=== PATIENT | female | born 1935 | race African-American/Black ===

== ENCOUNTER 2017-08-12 18:50 | Inpatient (IN) | payer MEDICARE, BC ==
[~2017-08-12] VITALS: Ht 152.4 cm; Wt 74.8 kg
[2017-08-12 19:00] VITALS: BP 120/67
[2017-08-12 20:00] VITALS: BP 120/67
[2017-08-12] MEDS ORDERED: ACETAMINOPHEN 325MG TABLET PO PRN (20:00)
[2017-08-12] MEDS ORDERED: CLONIDINE 0.1MG TABLET PO PRN (20:00)
[2017-08-12] MEDS ORDERED: ONDANSETRON HCL 4MG/2ML VIAL IV PRN (20:00)
[2017-08-12] MEDS ORDERED: HYDROCODONE/ACETAMINOPHEN 5/325MG TABLET PO PRN (20:00)
[2017-08-12] MEDS ORDERED: DEXT 5%/0.45% NACL 1000ML 1,000 ML IV SCH (20:00)
[2017-08-12] MEDS: ATORVASTATIN CALCIUM 20MG TABLET PO SCH (21:00)
[2017-08-13 08:00] VITALS: BP 127/62
[2017-08-13] MEDS: AMLODIPINE 10MG TABLET PO SCH (10:32)
[2017-08-13 20:00] VITALS: BP 101/50
[2017-08-13] MEDS: LACTULOSE 20G/30ML UDC PO PRN (21:15)
[2017-08-13] MEDS: ATORVASTATIN CALCIUM 20MG TABLET PO SCH (21:15)
[2017-08-14 08:00] VITALS: BP 119/51
[2017-08-14] MEDS: AMLODIPINE 10MG TABLET PO SCH (08:51)
[2017-08-14 20:00] VITALS: BP 120/58
[2017-08-14] MEDS: ATORVASTATIN CALCIUM 20MG TABLET PO SCH (21:33)
[2017-08-15 07:28] LABS: BASOPHILS % 0.5 % (0.0-2.0); EOSINOPHILS % 6.7 % (0.0-5.0); HEMATOCRIT. 34.4 % (36.0-48.0); HEMOGLOBIN. 10.9 g/dL (12.0-16.0); LYMPHOCYTES % 18.5 % (20.0-50.0); MEAN CORPUSCULAR HEMOGLOBIN 25.2 pg (28.0-32.0); MEAN CORPUSCULAR VOLUME 79.7 fL (81.0-99.0); MEAN PLATELET VOLUME 8.9 fl (7.4-10.4); MONOCYTES % 10.4 % (2.0-8.0); NEUTROPHILS % 63.9 % (40.0-76.0); PLATELET 201 x1000/uL (130-400); RED BLOOD CELL COUNT 4.31 mill/uL (4.2-5.4); RED CELL DISTRIBUTION WIDTH 14.2 % (11.6-14.6)
[2017-08-15 07:48] LABS: CARBON DIOXIDE 26 mEq/L (21-32); CHLORIDE 107 mEq/L (98-107)
[2017-08-15 08:00] VITALS: BP 114/57
[2017-08-15] MEDS: AMLODIPINE 10MG TABLET PO SCH (09:41)
[2017-08-15] MEDS: DOCUSATE SODIUM 100MG CAPSULE PO PRN (09:42)
[2017-08-15 20:00] VITALS: BP 109/61
[2017-08-15] MEDS: ATORVASTATIN CALCIUM 20MG TABLET PO SCH (21:54)
[2017-08-16 08:00] VITALS: BP 123/59
[2017-08-16] MEDS: AMLODIPINE 10MG TABLET PO SCH (09:17)
[2017-08-16 20:00] VITALS: BP 129/64
[2017-08-16] MEDS: ATORVASTATIN CALCIUM 20MG TABLET PO SCH (21:08)
[2017-08-17 08:00] VITALS: BP 113/61
[2017-08-17] MEDS: AMLODIPINE 10MG TABLET PO SCH (08:23)
[2017-08-17] MEDS: DOCUSATE SODIUM 100MG CAPSULE PO PRN (09:58)
[2017-08-17] MEDS: LACTULOSE 20G/30ML UDC PO PRN (09:58)
[2017-08-17] MEDS: BISACODYL 5MG TABLET PO PRN (17:53)
[2017-08-17 20:00] VITALS: BP 117/67
[2017-08-17] MEDS: ATORVASTATIN CALCIUM 20MG TABLET PO SCH (21:13)
[2017-08-18 08:00] VITALS: BP 123/52
[2017-08-18] MEDS ORDERED: FENTANYL CITRATE/PF 50MCG/ML 2ML VIAL ONE (08:36)
[2017-08-18] MEDS: AMLODIPINE 10MG TABLET PO SCH (09:27)
[2017-08-18 20:00] VITALS: BP 116/61
[2017-08-18] MEDS: ATORVASTATIN CALCIUM 20MG TABLET PO SCH (21:59)
[2017-08-19 08:00] VITALS: BP 115/70
[2017-08-19] MEDS: AMLODIPINE 10MG TABLET PO SCH (09:00)
[2017-08-19 20:00] VITALS: BP 109/53
[2017-08-19] MEDS: ATORVASTATIN CALCIUM 20MG TABLET PO SCH (21:44)
[2017-08-20 08:00] VITALS: BP 121/70
[2017-08-20] MEDS: AMLODIPINE 10MG TABLET PO SCH (09:21)
[2017-08-20 21:00] VITALS: BP 106/51
[2017-08-20] MEDS: ATORVASTATIN CALCIUM 20MG TABLET PO SCH (21:37)
[2017-08-21 07:59] VITALS: BP 129/56
[2017-08-21] MEDS: AMLODIPINE 10MG TABLET PO SCH (09:03)
[2017-08-21 20:00] VITALS: BP 120/53
[2017-08-21] MEDS: ATORVASTATIN CALCIUM 20MG TABLET PO SCH (21:40)
[2017-08-22 08:00] VITALS: BP 103/44
[2017-08-22] MEDS: AMLODIPINE 10MG TABLET PO SCH (08:51)
[2017-08-22 20:00] VITALS: BP 115/63
[2017-08-22] MEDS: ATORVASTATIN CALCIUM 20MG TABLET PO SCH (21:52)
[2017-08-23 08:31] VITALS: BP 166/67
[2017-08-23] MEDS: AMLODIPINE 10MG TABLET PO SCH (09:01)
[2017-08-23 09:05] VITALS: BP 127/58
[2017-08-23] MEDS: LACTULOSE 20G/30ML UDC PO PRN (16:32)
[2017-08-23 20:00] VITALS: BP 135/54
[2017-08-23] MEDS: ATORVASTATIN CALCIUM 20MG TABLET PO SCH (21:47)
[2017-08-24 08:00] VITALS: BP 100/45
[2017-08-24] MEDS: AMLODIPINE 10MG TABLET PO SCH (09:00)
[2017-08-24 20:00] VITALS: BP 119/77
[2017-08-24] MEDS: ATORVASTATIN CALCIUM 20MG TABLET PO SCH (20:44)
[2017-08-25 08:29] VITALS: BP 121/46
[2017-08-25] MEDS: AMLODIPINE 10MG TABLET PO SCH (08:31)
[2017-08-25 20:00] VITALS: BP 107/57
[2017-08-25] MEDS: ATORVASTATIN CALCIUM 20MG TABLET PO SCH (21:00)
[2017-08-26 08:00] VITALS: BP 106/44
[2017-08-26] MEDS: AMLODIPINE 10MG TABLET PO SCH (08:25)
[2017-08-26 20:33] VITALS: BP 109/48
[2017-08-26] MEDS: ATORVASTATIN CALCIUM 20MG TABLET PO SCH (21:15)
[2017-08-27 07:54] LABS: BASOPHILS % 0.9 % (0.0-2.0); EOSINOPHILS % 5.9 % (0.0-5.0); HEMATOCRIT. 35.2 % (36.0-48.0); HEMOGLOBIN. 11.3 g/dL (12.0-16.0); LYMPHOCYTES % 21.2 % (20.0-50.0); MEAN CORPUSCULAR HEMOGLOBIN 25.6 pg (28.0-32.0); MEAN CORPUSCULAR VOLUME 79.9 fL (81.0-99.0); MONOCYTES % 7.4 % (2.0-8.0); NEUTROPHILS % 64.6 % (40.0-76.0); PLATELET 307 x1000/uL (130-400); RED BLOOD CELL COUNT 4.41 mill/uL (4.2-5.4)
[2017-08-27 08:00] VITALS: BP 105/54
[2017-08-27 08:27] LABS: CARBON DIOXIDE 30 mEq/L (21-32); CHLORIDE 104 mEq/L (98-107)
[2017-08-27] MEDS: AMLODIPINE 10MG TABLET PO SCH (08:50)
[2017-08-27 20:00] VITALS: BP 120/66
[2017-08-27] MEDS: ATORVASTATIN CALCIUM 20MG TABLET PO SCH (21:44)
[2017-08-28 08:00] VITALS: BP 106/61
[2017-08-28] MEDS: AMLODIPINE 10MG TABLET PO SCH (09:00)
[2017-08-28 20:00] VITALS: BP 115/51
[2017-08-28] MEDS: ATORVASTATIN CALCIUM 20MG TABLET PO SCH (21:13)
[2017-08-29 08:00] VITALS: BP 124/68
[2017-08-29] MEDS: AMLODIPINE 10MG TABLET PO SCH (09:00)
[2017-08-29 20:00] VITALS: BP 105/51
[2017-08-29] MEDS: ATORVASTATIN CALCIUM 20MG TABLET PO SCH (21:58)
[2017-08-30 08:00] VITALS: BP 110/47
[2017-08-30] MEDS: AMLODIPINE 10MG TABLET PO SCH (08:23)
[2017-08-30 20:00] VITALS: BP 114/59
[2017-08-30] MEDS: ATORVASTATIN CALCIUM 20MG TABLET PO SCH (22:04)
[2017-08-31 08:00] VITALS: BP 107/51
[2017-08-31] MEDS: AMLODIPINE 10MG TABLET PO SCH (08:17)
[2017-08-31 20:00] VITALS: BP 115/62
[2017-08-31] MEDS: ATORVASTATIN CALCIUM 20MG TABLET PO SCH (22:17)
[2017-09-01 08:00] VITALS: BP 115/64
[2017-09-01] MEDS: AMLODIPINE 10MG TABLET PO SCH (08:14)
[2017-09-01 20:00] VITALS: BP 106/59
[2017-09-01] MEDS: ATORVASTATIN CALCIUM 20MG TABLET PO SCH (22:32)
[2017-09-02 08:00] VITALS: BP 100/44
[2017-09-02] MEDS: AMLODIPINE 10MG TABLET PO SCH (08:15)
[2017-09-02 20:00] VITALS: BP 100/49
[2017-09-02] MEDS: ATORVASTATIN CALCIUM 20MG TABLET PO SCH (20:34)
[2017-09-03 08:05] VITALS: BP 141/54
[2017-09-03] MEDS: AMLODIPINE 10MG TABLET PO SCH (09:50)
[2017-09-03] MEDS: BISACODYL 5MG TABLET PO PRN (09:50)
[2017-09-03] MEDS: ASPIRIN 81MG EC TABLET PO SCH (18:30)
[2017-09-03 20:08] VITALS: BP 98/53
[2017-09-03] MEDS: ATORVASTATIN CALCIUM 20MG TABLET PO SCH (21:00)
[2017-09-04 08:00] VITALS: BP 106/49
[2017-09-04] MEDS: AMLODIPINE 10MG TABLET PO SCH (09:00)
[2017-09-04] MEDS: ASPIRIN 81MG EC TABLET PO SCH (09:06)
[2017-09-04] MEDS: LACTULOSE 20G/30ML UDC PO PRN (09:06)
[2017-09-04] MEDS ORDERED: BISACODYL 10MG SUPP PR PRN (13:30)
[2017-09-04] MEDS ORDERED: NA PHOS,M-B/NA PHOS,DI-BA ENEMA 118ML PR PRN (13:30)
[2017-09-04 20:10] VITALS: BP 113/50
[2017-09-04] MEDS: ATORVASTATIN CALCIUM 20MG TABLET PO SCH (21:21)
[2017-09-05 08:00] VITALS: BP 110/50
[2017-09-05] MEDS: AMLODIPINE 10MG TABLET PO SCH (08:35)
[2017-09-05] MEDS: ASPIRIN 81MG EC TABLET PO SCH (08:36)
[2017-09-05 20:00] VITALS: BP 101/49
[2017-09-05] MEDS: ATORVASTATIN CALCIUM 20MG TABLET PO SCH (21:05)
[2017-09-06 07:14] LABS: BASOPHILS % 0.4 % (0.0-2.0); EOSINOPHILS % 6.4 % (0.0-5.0); HEMOGLOBIN. 10.8 g/dL (12.0-16.0); LYMPHOCYTES % 21.7 % (20.0-50.0); MEAN CORPUSCULAR HEMOGLOBIN 25.1 pg (28.0-32.0); MEAN CORPUSCULAR VOLUME 79.3 fL (81.0-99.0); MEAN PLATELET VOLUME 8.5 fl (7.4-10.4); MONOCYTES % 8.1 % (2.0-8.0); NEUTROPHILS % 63.4 % (40.0-76.0); PLATELET 282 x1000/uL (130-400); RED BLOOD CELL COUNT 4.29 mill/uL (4.2-5.4)
[2017-09-06 07:53] LABS: CARBON DIOXIDE 27 mEq/L (21-32); CHLORIDE 105 mEq/L (98-107)
[2017-09-06 08:00] VITALS: BP 105/42
[2017-09-06] MEDS: AMLODIPINE 10MG TABLET PO SCH (08:23)
[2017-09-06] MEDS: ASPIRIN 81MG EC TABLET PO SCH (08:26)
[2017-09-06 20:00] VITALS: BP 107/55
[2017-09-06] MEDS: ATORVASTATIN CALCIUM 20MG TABLET PO SCH (21:08)
[2017-09-07 08:00] VITALS: BP 112/57
[2017-09-07] MEDS: ASPIRIN 81MG EC TABLET PO SCH (08:48)
[2017-09-07] MEDS: AMLODIPINE 10MG TABLET PO SCH (09:00)
[2017-09-07 20:00] VITALS: BP 114/52
[2017-09-07] MEDS: ATORVASTATIN CALCIUM 20MG TABLET PO SCH (21:22)
[2017-09-08 08:00] VITALS: BP 123/49
[2017-09-08] MEDS: AMLODIPINE 10MG TABLET PO SCH (08:51)
[2017-09-08] MEDS: ASPIRIN 81MG EC TABLET PO SCH (08:51)
[2017-09-08 20:00] VITALS: BP 104/55
[2017-09-08] MEDS: ATORVASTATIN CALCIUM 20MG TABLET PO SCH (21:39)
[2017-09-08] MEDS: LACTULOSE 20G/30ML UDC PO PRN (21:39)
[2017-09-09 08:00] VITALS: BP 129/46
[2017-09-09] MEDS: AMLODIPINE 10MG TABLET PO SCH (08:37)
[2017-09-09] MEDS: ASPIRIN 81MG EC TABLET PO SCH (08:37)
[2017-09-09 20:00] VITALS: BP 87/51
[2017-09-09] MEDS: ATORVASTATIN CALCIUM 20MG TABLET PO SCH (22:01)
[2017-09-10 08:00] VITALS: BP 122/53
[2017-09-10] MEDS: AMLODIPINE 10MG TABLET PO SCH (09:00)
[2017-09-10] MEDS: ASPIRIN 81MG EC TABLET PO SCH (09:12)
[2017-09-10 12:04] VITALS: BP 122/53
[2017-09-10 12:34] VITALS: BP 122/53
== END 2017-09-10 13:43 | disposition home health service (06) | DRG 65 ==
PROVIDERS: ADMIT Psychiatry & Neurology Neurology; ATTEND Hospitalist
DX: I63.9 Cerebral infarction, unspecified (principal); G81.94 Hemiplegia, unspecified affecting left nondominant side; D64.9 Anemia, unspecified; R41.4 Neurologic neglect syndrome; I10 Essential (primary) hypertension; K59.00 Constipation, unspecified; R13.10 Dysphagia, unspecified; R32 Unspecified urinary incontinence; R47.1 Dysarthria and anarthria; R26.89 Other abnormalities of gait and mobility; F01.50 Vascular dementia, unspecified severity, without behavioral disturbance, psychotic disturbance, mood disturbance, and anxiety; F32.9 Major depressive disorder, single episode, unspecified; R29.810 Facial weakness; R15.9 Full incontinence of feces
CPT/HCPCS: 36415; 73130; 80048; 85025; 92523; 92610; 97110; 97112; 97116; 97162; 97167; 97530; 97532; 97535; 97760; A4565; A6261; J3010

== ENCOUNTER 2018-06-24 13:39 | Inpatient (IN) | payer MEDICARE, BC ==
[~2018-06-24] VITALS: Ht 167.6 cm; Wt 78.0 kg
[2018-06-24 15:17] LABS: BASOPHILS % 0.7 % (0.0-2.0); HEMATOCRIT. 36.8 % (36.0-48.0); HEMOGLOBIN. 11.7 g/dL (12.0-16.0); LYMPHOCYTES % 32.7 % (20.0-50.0); MEAN PLATELET VOLUME 8.7 fl (7.4-10.4); NEUTROPHILS % 51.6 % (40.0-76.0); PLATELET 235 x1000/uL (130-400); RED BLOOD CELL COUNT 4.67 mill/uL (4.2-5.4); RED CELL DISTRIBUTION WIDTH 16.3 % (11.6-14.6)
[2018-06-24 15:20] LABS: CHLORIDE 107 mEq/L (98-107)
[2018-06-24 15:23] LABS: PARTIAL THROMBOPLASTIN TIME 27.8 sec (23.4-31.0); PROTHROMBIN TIME 9.9 sec (9.1-11.1)
[2018-06-24 17:13] LABS: CLARITY URINE CLOUDY (CLEAR); COLOR URINE YELLOW (YELLOW); KETONES URINE NEGATIVE (NEGATIVE); LEUKOCYTE ESTERASE URINE 1+ (NEGATIVE); NITRITE URINE NEGATIVE (NEGATIVE); OCCULT BLOOD URINE 1+ (NEGATIVE); PH URINE 5.5 (4.5-8.0); PROTEIN URINE 1+ (NEGATIVE); SPECIFIC GRAVITY URINE 1.022 (1.005-1.030)
[2018-06-24] MEDS ORDERED: MORPHINE SULFATE 4 MG/ML CPJ (NOT FOR IM USE) IV PRN (18:15)
[2018-06-24] MEDS ORDERED: LORAZEPAM 2MG/ML CPJ IV PRN (18:15)
[2018-06-24] MEDS ORDERED: IPRATROPIUM/ALBUTEROL 0.5-3(2.5)MG/3ML NEB INH PRN (18:15)
[2018-06-24] MEDS ORDERED: DOCUSATE SODIUM 100MG CAPSULE PO PRN (18:15)
[2018-06-24] MEDS ORDERED: TRAMADOL 50MG TABLET PO PRN (18:15)
[2018-06-24] MEDS ORDERED: GUAIFENESIN 200MG/10ML SUGAR FREE UDC PO PRN (18:15)
[2018-06-24] MEDS ORDERED: ACETAMINOPHEN 325MG TABLET PO PRN (18:15)
[2018-06-24] MEDS ORDERED: MAGNESIUM/ALUMINUM HYDROXIDE/SIMETHICONE 30ML UDC PO PRN (18:15)
[2018-06-24] MEDS ORDERED: NA PHOS,M-B/NA PHOS,DI-BA ENEMA 118ML PR PRN (18:15)
[2018-06-24] MEDS ORDERED: NITROGLYCERIN 0.4MG TABLET SL SL PRN (18:15)
[2018-06-24] MEDS ORDERED: CLONIDINE 0.1MG TABLET PO PRN (18:15)
[2018-06-24] MEDS ORDERED: ONDANSETRON HCL 4MG/2ML INJ IV PRN (18:15)
[2018-06-24 21:00] VITALS: BP 139/72
[2018-06-24] MEDS ORDERED: LEVETIRACETAM 500MG PREMIX 100 ML IV SCH (21:00)
[2018-06-24] MEDS ORDERED: ZOLPIDEM TARTRATE 5MG TABLET PO PRN (21:30)
[2018-06-24] MEDS: ENOXAPARIN 30MG/0.3ML SYR SUBCUT SCH (22:16)
[2018-06-24] MEDS: FAMOTIDINE 20MG TABLET PO SCH (22:16)
[2018-06-24] MEDS: ASCORBIC ACID 500 MG TABLET PO SCH (22:16)
[2018-06-24] MEDS: ATORVASTATIN CALCIUM 10MG TABLET PO SCH (22:17)
[2018-06-24] MEDS ORDERED: ASPI-1158 MT (22:34)
[2018-06-24] MEDS ORDERED: ATOR20TA MT (22:34)
[2018-06-24 22:59] LABS: CREATINE KINASE MB FRACTION 2.1 ng/mL (0.5-3.6)
[2018-06-24] MEDS ORDERED: CEFTRIAXONE 1 G PREMIX 50 ML IV SCH (23:00)
[2018-06-24] MEDS: LEVETIRACETAM 500MG in SODIUM CHLORIDE 0.9% 100ML IV SCH (23:33)
[2018-06-25] VITALS: BP 116/71
[2018-06-25 04:00] VITALS: BP 114/72
[2018-06-25 07:42] LABS: CREATINE KINASE MB FRACTION 2.7 ng/mL (0.5-3.6)
[2018-06-25] MEDS: LEVETIRACETAM 500MG in SODIUM CHLORIDE 0.9% 100ML IV SCH ×2 (08:29→21:42)
[2018-06-25] MEDS: ASCORBIC ACID 500 MG TABLET PO SCH ×2 (08:36→21:41)
[2018-06-25] MEDS: CLOPIDOGREL 75MG TABLET PO SCH (08:36)
[2018-06-25] MEDS: ZINC SULFATE 220 MG ( 50 ) CAPSULE PO SCH (08:37)
[2018-06-25] MEDS: FAMOTIDINE 20MG TABLET PO SCH ×2 (08:37→21:41)
[2018-06-25] MEDS: ENOXAPARIN 30MG/0.3ML SYR SUBCUT SCH ×2 (08:38→21:41)
[2018-06-25 12:00] VITALS: BP 128/55
[2018-06-25 14:58] LABS: CLARITY URINE CLEAR (CLEAR); COLOR URINE YELLOW (YELLOW); KETONES URINE NEGATIVE (NEGATIVE); LEUKOCYTE ESTERASE URINE TRACE (NEGATIVE); NITRITE URINE NEGATIVE (NEGATIVE); OCCULT BLOOD URINE TRACE (NEGATIVE); PROTEIN URINE NEGATIVE (NEGATIVE); SPECIFIC GRAVITY URINE 1.011 (1.005-1.030); UROBILINOGEN URINE 0.2 E.U./dL (0.2-1.0)
[2018-06-25 16:00] VITALS: BP 116/65
[2018-06-25 20:00] VITALS: BP 136/72
[2018-06-25] MEDS: ATORVASTATIN CALCIUM 10MG TABLET PO SCH (21:41)
[2018-06-25] MEDS: CEFTRIAXONE 1 G PREMIX 50 ML IV SCH (23:07)
[2018-06-26] VITALS (8 sets, daily range): BP systolic 124–160; BP diastolic 60–82
[2018-06-26] MEDS: LEVETIRACETAM 500MG in SODIUM CHLORIDE 0.9% 100ML IV SCH ×2 (08:34→21:14)
[2018-06-26] MEDS: ZINC SULFATE 220 MG ( 50 ) CAPSULE PO SCH (08:37)
[2018-06-26] MEDS: FAMOTIDINE 20MG TABLET PO SCH ×2 (08:37→21:13)
[2018-06-26] MEDS: CLOPIDOGREL 75MG TABLET PO SCH (08:37)
[2018-06-26] MEDS: ASCORBIC ACID 500 MG TABLET PO SCH ×2 (08:37→21:14)
[2018-06-26] MEDS: ENOXAPARIN 30MG/0.3ML SYR SUBCUT SCH ×2 (08:40→21:14)
[2018-06-26 11:42] LABS: *BARBITURATES SCREEN URINE NEGATIVE (NEGATIVE); *COCAINE SCREEN URINE NEGATIVE (NEGATIVE); CANNABINOID URINE SCREEN NEGATIVE (NEGATIVE); PHENCYCLIDINE URINE SCREEN NEGATIVE (NEGATIVE)
[2018-06-26 11:43] LABS: *AMPHETAMINES SCREEN URINE NEGATIVE (NEGATIVE); *BENZODIAZEPINES SCREEN URINE NEGATIVE (NEGATIVE); METHADONE URINE SCREEN NEGATIVE (NEGATIVE); OPIATES URINE SCREEN NEGATIVE (NEGATIVE)
[2018-06-26 14:06] LABS: ETHANOL BLOOD < 10 mg/dL
[2018-06-26] MEDS: ATORVASTATIN CALCIUM 10MG TABLET PO SCH (21:13)
[2018-06-26] MEDS: CEFTRIAXONE 1 G PREMIX 50 ML IV SCH (23:23)
[2018-06-27] VITALS: BP 148/70
[2018-06-27 04:00] VITALS: BP 125/62
[2018-06-27 08:28] VITALS: BP 128/34
[2018-06-27] MEDS: LEVETIRACETAM 500MG in SODIUM CHLORIDE 0.9% 100ML IV SCH (10:07)
[2018-06-27] MEDS: FAMOTIDINE 20MG TABLET PO SCH (10:08)
[2018-06-27] MEDS: ZINC SULFATE 220 MG ( 50 ) CAPSULE PO SCH (10:08)
[2018-06-27] MEDS: CLOPIDOGREL 75MG TABLET PO SCH (10:08)
[2018-06-27] MEDS: ASCORBIC ACID 500 MG TABLET PO SCH (10:08)
[2018-06-27] MEDS: ENOXAPARIN 30MG/0.3ML SYR SUBCUT SCH (10:09)
[2018-06-27 12:00] VITALS: BP 132/58
[2018-06-27 16:20] VITALS: BP 148/60
== END 2018-06-27 18:25 | disposition home health service (06) | DRG 101 ==
LOC: ER 13:39 → 6WST 17:59 → SUPCPDRO 18:01 → ENRESERV 19:45 → 6WST 06-26 22:34
PROVIDERS: ADMIT Internal Medicine; ATTEND Internal Medicine
PROC: 4A10X4Z Monitoring of Central Nervous Electrical Activity, External Approach (ICD-10-PCS; principal; 2018-06-27)
DX: G40.409 Other generalized epilepsy and epileptic syndromes, not intractable, without status epilepticus (principal); N39.0 Urinary tract infection, site not specified; E44.1 Mild protein-calorie malnutrition; I69.354 Hemiplegia and hemiparesis following cerebral infarction affecting left non-dominant side; R41.4 Neurologic neglect syndrome; R47.01 Aphasia; E78.00 Pure hypercholesterolemia, unspecified; I10 Essential (primary) hypertension; D64.9 Anemia, unspecified; E78.5 Hyperlipidemia, unspecified; R13.10 Dysphagia, unspecified; R47.1 Dysarthria and anarthria; Z68.27 Body mass index [BMI] 27.0-27.9, adult
CPT/HCPCS: 36415; 70450; 70551; 80053; 80061; 80305; 81003; 82550; 82553; 83036; 83735; 84484; 85025; 85610; 85730; 87086; 92523; 92610; 93970; 97162; 97166; 97530; 97535; 99285; G0482; J0696; J1650; J1953; J7050